=== PATIENT | female | born 1960 | race Asian ===

== ENCOUNTER → 2023-06-30 17:40 | Outpatient (REF) | payer OTHER, SELFPAY | LOC: WDC 17:40 | PROVIDERS: ATTENDING PHYSICIAN Obstetrics & Gynecology; FAMILY PHYSICIAN Internal Medicine | DX: Z12.31 Encounter for screening mammogram for malignant neoplasm of breast (principal) | CPT/HCPCS: 77063; 77067 ==

== ENCOUNTER → 2024-07-05 14:38 | Outpatient (REF) | payer OTHER, SELFPAY | LOC: WDC 14:38 | PROVIDERS: ATTENDING PHYSICIAN Obstetrics & Gynecology; FAMILY PHYSICIAN Internal Medicine | DX: Z78.0 Asymptomatic menopausal state (principal); Z12.31 Encounter for screening mammogram for malignant neoplasm of breast | CPT/HCPCS: 77063; 77067; 77080 ==